=== PATIENT | female | born 1995 | race African-American/Black ===

== ENCOUNTER 2016-10-13 16:35 | Emergency (ER) | payer OTHER ==
[~2016-10-13] VITALS: Ht 152.4 cm; Wt 78.9 kg
[2016-10-13] MEDS ORDERED: PRENTAB29 (16:46)
[2016-10-13 17:46] VITALS: BP 151/71
--- NOTE | 2016-10-13 19:28 | REP ---
OB ULTRASOUND: REASON: Assess heart rate only. Multiple ultrasonographic images of the gravid uterus show a single living intrauterine gestation with a documented heart rate of 133 beats per minute. The placenta is anterior and not low lying. The subjective amniotic fluid volume is within normal limits. The cervix measures 3.2 cm in length and is closed. Evaluation of the maternal adnexal spaces showed no abnormalities. BPD 4.6 cm = 20 weeks 0 days HC 16.3 cm = 19 weeks 0 days AC 14.1 cm = 19 weeks 3 days FL 3.1 cm = 19 weeks 2 days Estimated weight is 296 grams which is at the 62nd percentile for a 19 week 1 day gestational age. The fetus was too small for a complete anatomical screen. IMPRESSION: Single living intrauterine gestation as described above with an estimated gestational age of 20 weeks 0 days via composite criteria and an estimated date of delivery of 03/02/2017. Full anatomical screen can be performed at 20-22 weeks and although the estimated gestational age by ultrasound today is 20 weeks I would recommend a followup in 2 weeks for a complete anatomical screen which was not performed today. Signed by Jair Richards DO 10/14/2016 03:36 P
== END 2016-10-13 17:49 | disposition home or self-care (01) ==
LOC: M ED 17:45
DX: Z36 Encounter for antenatal screening of mother (principal); O99.342 Other mental disorders complicating pregnancy, second trimester; F41.9 Anxiety disorder, unspecified; O99.212 Obesity complicating pregnancy, second trimester; Z3A.19 19 weeks gestation of pregnancy

== ENCOUNTER 2016-12-05 02:07 | Outpatient (CLI) | payer OTHER ==
[~2016-12-05] VITALS: Ht 154.9 cm; Wt 90.0 kg
[~2016-12-05 02:07] MED LIST: PRENTAB29
[2016-12-05 02:17] VITALS: BP 138/65
[2016-12-05 05:22] VITALS: BP 140/81
[2016-12-05 05:24] VITALS: BP 139/83
== END 2016-12-05 05:30 | disposition home or self-care (01) ==
LOC: M LDO 02:07
PROVIDERS: ATTEND Obstetrics & Gynecology
DX: O99.89 Other specified diseases and conditions complicating pregnancy, childbirth and the puerperium (principal); O47.02 False labor before 37 completed weeks of gestation, second trimester; Z3A.26 26 weeks gestation of pregnancy; O9A.312 Physical abuse complicating pregnancy, second trimester; O21.9 Vomiting of pregnancy, unspecified

== ENCOUNTER 2017-02-25 14:17 | Inpatient (IN) | payer OTHER ==
[2017-02-25] VITALS (18 sets, daily range): BP systolic 119–181; BP diastolic 57–113
[~2017-02-25] VITALS: Ht 154.9 cm; Wt 106.0 kg
[2017-02-25] MEDS ORDERED: PRENTAB9 PO (15:10)
[2017-02-25] MEDS: LR 1,000 ML IV SCH (16:09)
[2017-02-25] MEDS ORDERED: OXYTOCIN DRIP 30 UNITS in APPROPRIATE DILUENT 1 EA IV SCH (16:15)
[2017-02-25 16:36] LABS: MEAN CORPUSCULAR HEMOGLOBIN 30.3 pg (27.0-33.0); MEAN CORPUSCULAR HGB CONC 34.3 g/dl (32.0-36.5); MEAN CORPUSCULAR VOLUME 88.4 fl (80.0-96.0); RED CELL DISTRIBUTION WIDTH 13.9 % (11.5-14.5); WHITE BLOOD COUNT 13.2 K/mm3 (4.0-10.0)
[2017-02-25 16:44] LABS: ALKALINE PHOSPHATASE 158 U/L (45-117); ALT/SGPT 30 U/L (12-78); ANION GAP 11 MEQ/L (8-16); AST/SGOT 32 U/L (15-37); BILIRUBIN,TOTAL 0.6 MG/DL (0.2-1.0); BLOOD UREA NITROGEN 12 MG/DL (7-18); CALCIUM LEVEL 9.7 MG/DL (8.5-10.1); CARBON DIOXIDE LEVEL 22 MEQ/L (21-32); CHLORIDE LEVEL 105 MEQ/L (98-107); CREATININE FOR GFR 0.83 MG/DL (0.55-1.02); GLOMERULAR FILTRATION RATE > 60.0 (>60); GLUCOSE, FASTING 74 MG/DL (70-105); POTASSIUM SERUM 4.4 MEQ/L (3.5-5.1); SODIUM LEVEL 138 MEQ/L (136-145); TOTAL PROTEIN 7.3 GM/DL (6.4-8.2); URIC ACID 5.2 MG/DL (2.6-6.0)
[2017-02-25] MEDS ORDERED: FENTANYL 2MCG/ML ROPIVACAINE 0.2% IN 0.9% NACL 200ML IVBAG As Ordered ONE (21:45)
[2017-02-26] VITALS (53 sets, daily range): BP systolic 105–200; BP diastolic 53–148
[2017-02-26] MEDS: LR 1,000 ML IV SCH ×4 (00:09→21:50)
[2017-02-26] MEDS ORDERED: fentaNYL 100 MCG/2 ML INJECTION (J3010) As Ordered ONE (03:07)
[2017-02-26] MEDS ORDERED: LACTATED RINGER'S 1000 ML IV PRN (04:45)
[2017-02-26] MEDS ORDERED: NALOXONE INJ 0.4 MG/1 ML VIAL (J2310) IV PRN (04:45)
[2017-02-26] MEDS ORDERED: FENTANYL/ROPIVACAINE/NACL BAG 200 ML EPIDURAL SCH (04:45)
[2017-02-26] MEDS ORDERED: ONDANSETRON 4MG/2ML VIAL (J2405) IV PRN ×2 (04:45→18:00)
[2017-02-26] MEDS ORDERED: EPIDURAL/PCA KEYS XX PRN (04:45)
[2017-02-26] MEDS ORDERED: REFRIGERATOR IV KEYS XX PRN (04:45)
[2017-02-26] MEDS ORDERED: EPIDURAL COMMENT XX SCH (04:45)
[2017-02-26] MEDS ORDERED: diphenhydrAMINE INJ 50MG/ML VIAL (J1200) IV PRN ×2 (04:45→18:00)
[2017-02-26] MEDS ORDERED: ePHEDrine SULFATE 25 MG/5 ML(5MG/ML) SYRINGE IV PRN (04:45)
[2017-02-26] MEDS ORDERED: ACETAMINOPHEN 650 MG SUPP PR ONE (14:00)
[2017-02-26] MEDS ORDERED: LACTATED RINGER'S 1000 ML IV ONE (14:00)
[2017-02-26] MEDS ORDERED: AZITHROMYCIN INJ 500 MG, VIAL MATE ADAPTER 1 EACH in D5W 250 ML IV ONE (14:00)
[2017-02-26] MEDS ORDERED: BICITRA 30ML SOLN UDC PO ONE (14:00)
[2017-02-26] MEDS ORDERED: BUPIVACAINE HCL 0.25% 10 ML VIAL SC ONE (14:00)
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
[2017-02-26] MEDS ORDERED: MORPHINE PRES-FREE INJ 10 MG/10 ML VIAL (J2274) As Ordered ONE (14:31)
[2017-02-26 14:47] LABS: MEAN CORPUSCULAR HEMOGLOBIN 30.9 pg (27.0-33.0); MEAN CORPUSCULAR HGB CONC 35.2 g/dl (32.0-36.5); MEAN CORPUSCULAR VOLUME 87.9 fl (80.0-96.0); RED CELL DISTRIBUTION WIDTH 13.9 % (11.5-14.5); WHITE BLOOD COUNT 17.8 K/mm3 (4.0-10.0)
[2017-02-26] MEDS ORDERED: OXYTOCIN INJ 10 UNITS/ML VIAL (J2590) As Ordered ONE (15:36)
[2017-02-26] MEDS ORDERED: KETOROLAC 60 MG/2 ML VIAL (J1885) As Ordered ONE (16:49)
[2017-02-26] MEDS ORDERED: ONDANSETRON 4MG/2ML VIAL (J2405) As Ordered ONE (16:56)
[2017-02-26 17:06] LABS: CORD GAS ABE A -9.2; CORD GAS HCO3 A 22.7 MEQ/L; CORD GAS PCO2 A 77.2 mmHg; CORD GAS PH A 7.086 UNITS; CORD GAS PO2 A 14.3 mmHg; CORD GAS TCO2 A 25.1 MEQ/L
[2017-02-26 17:07] LABS: CORD GAS O2 SAT A < 15.0 %
[2017-02-26 17:09] LABS: CORD GAS ABE V -8.3; CORD GAS HCO3 V 20.6 MEQ/L; CORD GAS O2 SAT V 15.5 %; CORD GAS PCO2 V 56.2 mmHg; CORD GAS PH V 7.183 UNITS; CORD GAS PO2 V 12.9 mmHg; CORD GAS SBC V 16.1 MEQ/L; CORD GAS TCO2 V 22.4 MEQ/L
[2017-02-26] MEDS ORDERED: fentaNYL 100 MCG/2 ML INJECTION (J3010) IV PRN (18:00)
[2017-02-26] MEDS ORDERED: METHYLERGONOVINE MALEATE 0.2 MG TAB PO PRN (18:00)
[2017-02-26] MEDS ORDERED: MEASLES,MUMPS,RUBELLA VACCINE INJ (MMR-II) (90707) SC SCH (18:00)
[2017-02-26] MEDS ORDERED: ANUSOL HC CREAM 30GM TOP PRN (18:00)
[2017-02-26] MEDS ORDERED: NALBUPHINE HCL 10 MG/ML AMP (J2300) IV PRN (18:00)
[2017-02-26] MEDS ORDERED: HYDROmorphone HCL 1 MG/ML SYRINGE (J1170) IV PRN (18:00)
[2017-02-26] MEDS ORDERED: PERCOCET 5MG/325MG TAB PO PRN ×2 (18:00)
[2017-02-26] MEDS ORDERED: MEPERIDINE INJ 25 MG/ML VIAL (J2175) IV PRN (18:00)
[2017-02-26] MEDS ORDERED: METOCLOPRAMIDE INJ 10MG/2ML VIAL (J2765) IV PRN (18:00)
[2017-02-26] MEDS ORDERED: MOM 30ML SUSPENSION UDC PO PRN (18:00)
[2017-02-26] MEDS ORDERED: LR 1,000 ML IV SCH (18:00)
[2017-02-26] MEDS ORDERED: DOCUSATE SODIUM 100 MG CAP PO PRN (18:00)
[2017-02-27 02:00] VITALS: BP 127/59
[2017-02-27] MEDS: IBUPROFEN 800 MG TAB PO SCH ×3 (02:24→15:48)
[2017-02-27] MEDS: PERCOCET 5MG/325MG TAB PO PRN ×3 (05:28→23:41)
[2017-02-27 05:37] VITALS: BP 137/78
[2017-02-27] MEDS: LR 1,000 ML IV SCH (05:50)
[2017-02-27 06:29] LABS: MEAN CORPUSCULAR HEMOGLOBIN 30.1 pg (27.0-33.0); MEAN CORPUSCULAR VOLUME 88.4 fl (80.0-96.0); WHITE BLOOD COUNT 14.5 K/mm3 (4.0-10.0)
[2017-02-27] MEDS: PRENATAL VITAMINS CHEWABLE TABLET PO SCH (09:17)
[2017-02-27 10:58] VITALS: BP 121/58
--- NOTE | 2017-02-27 13:20 | RO ---
DATE OF PROCEDURE: 02/26/2017 PREOPERATIVE DIAGNOSES: Failure to descend, persistent occiput posterior, asynclitism. POSTOPERATIVE DIAGNOSES: Failure to descend at full dilatation, POP, asynclitism, deflexed and prominent sacral promontory. OPERATION PROPOSED: Primary section. OPERATION PERFORMED: Primary section. ANESTHESIA: Epidural spinal, local anesthetic for intraperitoneal procedures. ESTIMATED BLOOD LOSS: 350 mL. SURGEON: Jayy Israel MD TEAM FACILITATOR: Loyda Cleary MD DESCRIPTION OF PROCEDURE: Under adequate anesthesia, prepped and draped in the supine position, Guzmán catheter bladder draining clear urine, acetaminophen suppository 1300 mg per rectum, sequentials on board, antibiotics on board, with the second time-out, a Pfannenstiel incision was made two fingerbreadths above the symphysis pubis passing through abdominal layers, securing hemostasis. On opening the peroneal cavity, the bladder was reflected well down anteriorly, very thin lower uterine segment was opened in the POP position with clear liquid. We delivered a live female weighing 3640 grams, 8 pounds 0 ounces, scores of 8 and 9 at one and five minutes, respectively. Arterial and venous pH were performed. Placenta was manually removed. Three-vessels in the cord. Membranes and tissues intact. The uterus contracted well down on Pitocin. The lower segment was oversewn in the usual fashion in two layers with a second layer of a baseball stitch. Then, the peritoneum was closed over the bladder. Instrument and pad counts correct. Both ovaries and tubes appeared to be normal. The abdomen was then closed with a running stitch for the peritoneum, same for the fascia, interrupted for the subcutaneous, Dexon to the skin. Marcaine 0.25% 10 mL to the subcutaneous tissue under the incision. [place] and Telfa were performed, and the patient was sent to recovery in good condition.
--- NOTE | 2017-02-27 13:52 | IPN ---
DATE: 02/27/2017 day #1. This lady was admitted at 38 and weeks of gestation for induction of labor because of gestational hypertension. She had a primary section because of failure to descend, persistent occiput posterior, asynclitism, prominent sacrum, delivered a live female infant 8 pounds, 3640 grams, scores of 8 and 9 at one and five minutes, respectively. Arterial pH 7.08, base excess -9.2, venous pH 7.18, base excess -8.3. The rest of her course presently is unremarkable. She has got issues with gestational hypertension, BMI of 35.1, depression and she is Rh negative. This morning her blood pressure is 121/58, respirations 20, pulse 117 and temperature 97.9. She has had no significant blood pressures throughout the entire course. Her admitting hemoglobin 13.8, hematocrit 40.2 and platelets 209. and postop day #1 hemoglobin 10.9, hematocrit 32.1 and platelets 160. We discussed phlebitis, cystitis, mastitis, endometritis, cellulitis, diet, exercise, pain management, perineal, breast and wound care. She is not sure what she wants to do for control. We will give her medications at discharge. The rest the examination is unremarkable. She is normocephalic, atraumatic. Neck with full range of motion. Pupils equal and reactive to light. Distal pulses symmetric. No evidence of DVT, PE or superficial phlebitis. Chest is clear bilaterally to the bases. No wheezes or rhonchi. No CVA tenderness. Four quadrant bowel sounds are noted. Abdomen is soft. Incision is clean, dry and healing. She has no rashes, lesions or pruritus. No arthralgia, myalgia. No complaints of cough, wheeze, shortness of breath or dyspnea on exertion. She is not bleeding. She is neuro complete. Guzmán catheter was removed and we are waiting for voiding. She has no nausea, vomiting, diarrhea or constipation. In summary, we have a 38 and 3-week gestation lady admitted for gestational hypertension, induction of labor with primary section. Planned discharge with medications tomorrow.
[2017-02-27 14:10] VITALS: BP 121/57
[2017-02-27] MEDS: RHOGAM 300 MCG (1500 IU) INJ (J2790) IM SCH (15:46)
[2017-02-27 19:05] VITALS: BP 131/75
[2017-02-27 21:55] VITALS: BP 129/61
[2017-02-28 00:50] VITALS: BP 144/97
[2017-02-28] MEDS: IBUPROFEN 800 MG TAB PO SCH ×3 (01:15→17:00)
[2017-02-28 01:56] LABS: BASO % 0.1 % (0.0-1.0); EOS # 0.1 K/mm3 (0.0-0.50); EOS % 0.5 % (0.0-3.0); LARGE UNSTAINED CELL # 0.2 K/mm3 (0.0-0.4); LARGE UNSTAINED CELL % 1.2 % (0.0-4.0); LYMPH # 1.7 K/mm3 (1.5-6.5); LYMPH % 13.1 % (24.0-44.0); MEAN CORPUSCULAR HEMOGLOBIN 30.2 pg (27.0-33.0); MEAN CORPUSCULAR HGB CONC 34.4 g/dl (32.0-36.5); MEAN CORPUSCULAR VOLUME 87.7 fl (80.0-96.0); MONO # 0.7 K/mm3 (0.0-0.8); MONO % 5.5 % (0.0-5.0); NEUTROPHILS # 10.6 K/mm3 (1.8-7.7); NEUTROPHILS % 79.7 % (36.0-66.0); PLATELET COUNT, AUTOMATED 166 k/mm3 (150-450); RED CELL DISTRIBUTION WIDTH 14.1 % (11.5-14.5); WHITE BLOOD COUNT 13.3 K/mm3 (4.0-10.0)
[2017-02-28 02:30] VITALS: BP 120/60
[2017-02-28 06:10] VITALS: BP 122/60
[2017-02-28] MEDS: RHOGAM 300 MCG (1500 IU) INJ (J2790) IM SCH (07:26)
[2017-02-28] MEDS: PRENATAL VITAMINS CHEWABLE TABLET PO SCH (08:21)
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
[2017-02-28 17:37] VITALS: BP 139/78
[2017-02-28] MEDS: PERCOCET 5MG/325MG TAB PO PRN (18:13)
[2017-03-01] MEDS: IBUPROFEN 800 MG TAB PO SCH ×2 (01:37→09:00)
[2017-03-01] MEDS: PERCOCET 5MG/325MG TAB PO PRN (02:28)
[2017-03-01 05:54] VITALS: BP 139/83
[2017-03-01] MEDS: PRENATAL VITAMINS CHEWABLE TABLET PO SCH (09:00)
[2017-03-01] MEDS ORDERED: IBUP-1114 PO (12:41)
[2017-03-01] MEDS ORDERED: OXYC1TAB23 PO ×2 (12:41→12:42)
== END 2017-03-01 14:30 | disposition home or self-care (01) | DRG 765 ==
LOC: M LDI 14:17 → M OBS 02-26 18:48
PROVIDERS: ADMIT Obstetrics & Gynecology; ATTEND Obstetrics & Gynecology
PROC: 3E033VJ Introduction of Other Hormone into Peripheral Vein, Percutaneous Approach (ICD-10-PCS; 2017-02-25)
PROC: 10D00Z1 Extraction of Products of Conception, Low, Open Approach (ICD-10-PCS; principal; 2017-02-26 15:39)
DX: O13.4 Gestational [pregnancy-induced] hypertension without significant proteinuria, complicating childbirth (principal); O36.0930 Maternal care for other rhesus isoimmunization, third trimester, not applicable or unspecified; O64.0XX0 Obstructed labor due to incomplete rotation of fetal head, not applicable or unspecified; Z37.0 Single live birth; O32.4XX0 Maternal care for high head at term, not applicable or unspecified; Z3A.38 38 weeks gestation of pregnancy; E66.9 Obesity, unspecified; O99.214 Obesity complicating childbirth; O65.0 Obstructed labor due to deformed pelvis; Z68.35 Body mass index [BMI] 35.0-35.9, adult